=== PATIENT | male | born 1985 | race African-American/Black ===

== ENCOUNTER 2018-08-18 08:00 | Outpatient (RCR) | payer SELFPAY | END 2018-10-11 12:50 | disposition home or self-care (01) | LOC: MKS.ESL.PT 08:00 | DX: S72.301D Unspecified fracture of shaft of right femur, subsequent encounter for closed fracture with routine healing (principal); S52.611D Displaced fracture of right ulna styloid process, subsequent encounter for closed fracture with routine healing; S42.202D Unspecified fracture of upper end of left humerus, subsequent encounter for fracture with routine healing; S12.500D Unspecified displaced fracture of sixth cervical vertebra, subsequent encounter for fracture with routine healing; S12.600D Unspecified displaced fracture of seventh cervical vertebra, subsequent encounter for fracture with routine healing; V29.9XXD Motorcycle rider (driver) (passenger) injured in unspecified traffic accident, subsequent encounter ==

== ENCOUNTER 2019-04-15 11:15 | Outpatient (RCR) | payer MEDICAID ==
[2019-06-11] MEDS ORDERED: CEPHALEXIN500 M1 PO (07:44)
[2019-06-11] MEDS ORDERED: DOXYCYCLINE 10100 MG PO (07:44)
== END 2019-06-27 ==
LOC: MKS.ESL.PT
DX: S12.9XXS Fracture of neck, unspecified, sequela (principal)

== ENCOUNTER 2019-06-11 07:12 | Emergency (ER) | payer MEDICAID ==
[~2019-06-11] VITALS: Ht 175.3 cm; Wt 69.5 kg
[2019-06-11 07:19] VITALS: BP 124/69; PULSE 89
[2019-06-11] MEDS ORDERED: CEPHALEXIN500 M1 PO (07:44)
[2019-06-11] MEDS ORDERED: DOXYCYCLINE 10100 MG PO (07:44)
[2019-06-11 08:27] VITALS: TEMP 97.3
== END 2019-06-11 08:27 | disposition home or self-care (01) ==
LOC: COL.ER 07:12
DX: L02.412 Cutaneous abscess of left axilla (principal); F17.210 Nicotine dependence, cigarettes, uncomplicated

== ENCOUNTER → 2019-06-29 | Outpatient (CLI) | payer SELFPAY ==
[~2019-06-29] MED LIST: CEPHALEXIN500 M1 PO; DOXYCYCLINE 10100 MG PO
== END ==
LOC: DIA.ED
DX: E10.9 Type 1 diabetes mellitus without complications (principal); Z79.4 Long term (current) use of insulin
CPT/HCPCS: G0108

== ENCOUNTER 2019-07-17 21:52 | Emergency (ER) | payer SELFPAY ==
[~2019-07-17] VITALS: Ht 167.6 cm; Wt 70.0 kg
[2019-07-17 22:01] VITALS: BP 139/79; TEMP 98.3
[2019-07-17] MEDS ORDERED: NEURONTIN800 MG/TAB PO (22:12)
[2019-07-17] MEDS ORDERED: LIORESAL20 MG PO (22:12)
[2019-07-17 22:29] LABS: BASO % 0.4 % (0.0-2.0); EOS # 0.1 (0.0-0.7); EOS % 1.1 % (0-4.0); GRAN # 5.1 (1.4-6.5); GRAN % 64.6 % (42.2-75.2); HEMATOCRIT 44.9 % (42.0-52.0); LYMPH % 25.1 % (20.0-51.0); MEAN CELL VOLUME 87 fl (80.0-100.0); MEAN CORPUSCULAR HEMOGLOBIN 29 pg (27.0-31.0); MEAN CORPUSCULAR HGB CONC 33 g/dl (33.0-37.0); MEAN PLATELET VOLUME 10.4 fl (7.4-10.4); MONO # 0.7 (0.1-0.6); MONO % 8.4 % (1.7-9.3); PLATELET COUNT 172 K/mm3 (130-400); RED BLOOD COUNT 5.17 M/mm3 (4.20-5.60); REDCELL DISTRIBUTION WIDTH-CV 12.6 % (11.5-14.5)
[2019-07-17 22:40] LABS: ALANINE AMINOTRANSFERASE 11 U/L (21-72); ALBUMIN 4.1 gm/dL (3.5-5.0); ALKALINE PHOSPHATASE 165 U/L (50-136); ANION GAP 8 mmol/L (7-16); AST,SGOT 17 U/L (15-37); BILIRUBIN,TOTAL 0.3 mg/dL (0.0-1.0); BLOOD UREA NITROGEN 7 mg/dL (9-20); CALCIUM 9.2 mg/dL (8.4-10.2); CARBON DIOXIDE 26 mmol/L (22-30); CHLORIDE 102 mmol/L (98-107); CREATININE, serum 0.55 (0.66-1.25); LIPASE 114 U/L (23-300); SODIUM 136 mmol/L (137-145); TOTAL PROTEIN 6.8 gm/dL (6.4-8.2)
[2019-07-17 22:41] LABS: GLUCOSE 420 mg/dL (74-106)
[2019-07-17 22:43] LABS: ACETONE,SERUM NEGATIVE
[2019-07-17 23:04] LABS: COLLECTION METHOD CLEAN CATCH
[2019-07-17 23:09] LABS: PH 6 (5-8); SQUAMOUS EPITHELIAL None Seen /hpf; URINE APPEARANCE Clear; URINE BACTERIA None Seen /hpf; URINE BILIRUBIN Negative (NEGATIVE); URINE BLOOD Negative (NEGATIVE); URINE COLOR Straw; URINE GLUCOSE 3+ (NEGATIVE); URINE KETONE Negative (NEGATIVE); URINE LEUKOCYTE ESTERASE Negative (NEGATIVE); URINE NITRATE Negative (NEGATIVE); URINE PROTEIN(semi-quant) Negative (NEGATIVE); URINE RBC 0-2 /hpf; URINE UROBILINOGEN Negative (NEGATIVE)
[2019-07-17 23:54] VITALS: PULSE 69
== END 2019-07-17 23:56 | disposition home or self-care (01) ==
LOC: COL.ER 21:52
PROVIDERS: Emergency Medicine
DX: E10.65 Type 1 diabetes mellitus with hyperglycemia (principal); F17.210 Nicotine dependence, cigarettes, uncomplicated
CPT/HCPCS: J1815; J7030

== ENCOUNTER 2020-06-14 10:33 | Emergency (ER) | payer OTHER ==
[~2020-06-14] VITALS: Ht 175.3 cm; Wt 77.3 kg
[~2020-06-14 10:33] MED LIST changes: +LIORESAL20 MG PO; +NEURONTIN800 MG/TAB PO
[2020-06-14 10:42] VITALS: BP 146/88; TEMP 98.5
[2020-06-14] MEDS ORDERED: LIORESAL 1010 MG/TAB PO (11:09)
[2020-06-14 11:31] VITALS: PULSE 81
== END 2020-06-14 11:35 | disposition home or self-care (01) ==
LOC: COL.ER 10:33
DX: M62.838 Other muscle spasm (principal); G89.29 Other chronic pain; F17.210 Nicotine dependence, cigarettes, uncomplicated

== ENCOUNTER 2020-07-10 16:40 | Emergency (ER) | payer MEDICAID ==
[~2020-07-10] VITALS: Ht 175.3 cm; Wt 80.9 kg
[~2020-07-10 16:40] MED LIST changes: +LIORESAL 1010 MG/TAB PO
[2020-07-10 16:52] VITALS: BP 134/90; TEMP 98.4
[2020-07-10] MEDS ORDERED: DAZIDOX10 MG PO (17:59)
[2020-07-10] MEDS ORDERED: NEURONTIN800 MG/TAB PO (17:59)
[2020-07-10 18:21] VITALS: PULSE 83
== END 2020-07-10 18:00 | disposition home or self-care (01) ==
LOC: COL.ER 16:40
DX: M79.621 Pain in right upper arm (principal); M54.12 Radiculopathy, cervical region; G89.29 Other chronic pain; F17.210 Nicotine dependence, cigarettes, uncomplicated; Z23 Encounter for immunization
CPT/HCPCS: J1885

== ENCOUNTER → 2020-12-13 | Outpatient (CLI) | payer MEDICAID ==
[~2020-12-13] MED LIST changes: +AMOXICILLIN 8751 TAB PO; +CRUTCHES MC; +DAZIDOX10 MG PO; +FLEXERIL 1010 MG/TAB PO; +LYRICA200 MG PO; +PERCOCET 325 MG1 TA2 PO; +PERCOCET 325 MG1 TA3 PO; +ROBAXIN 50500 MG/TAB PO; +ROBAXIN 75750 MG/TAB PO
== END ==
LOC: COL.RAD 13:27
DX: G95.89 Other specified diseases of spinal cord (principal); S14.3XXD Injury of brachial plexus, subsequent encounter; S14.105S Unspecified injury at C5 level of cervical spinal cord, sequela
CPT/HCPCS: A9585

== ENCOUNTER 2021-05-02 01:43 | Emergency (ER) | payer MEDICAID ==
[~2021-05-02] VITALS: Ht 175.3 cm; Wt 79.5 kg
[~2021-05-02 01:43] MED LIST changes: -AMOXICILLIN 8751 TAB PO; -CRUTCHES MC; -FLEXERIL 1010 MG/TAB PO; -LYRICA200 MG PO; -PERCOCET 325 MG1 TA2 PO; -PERCOCET 325 MG1 TA3 PO; -ROBAXIN 50500 MG/TAB PO; -ROBAXIN 75750 MG/TAB PO
[2021-05-02 01:54] VITALS: TEMP 97.1
[2021-05-02] MEDS ORDERED: ROBAXIN 50500 MG/TAB PO (03:12)
[2021-05-02 03:23] VITALS: BP 124/70; PULSE 68
== END 2021-05-02 03:23 | disposition home or self-care (01) ==
LOC: COL.ER 01:43
DX: M62.838 Other muscle spasm (principal); K08.89 Other specified disorders of teeth and supporting structures; F17.210 Nicotine dependence, cigarettes, uncomplicated

== ENCOUNTER 2021-05-19 19:08 | Emergency (ER) | payer MEDICAID ==
[~2021-05-19] VITALS: Ht 175.3 cm; Wt 81.8 kg
[~2021-05-19 19:08] MED LIST changes: +ROBAXIN 50500 MG/TAB PO
[2021-05-19 19:38] LABS: BASO % 0.3 % (0.0-2.0); EOS % 0.7 % (0-4.0); GRAN # 4.1 (1.4-6.5); GRAN % 67.1 % (42.2-75.2); HEMOGLOBIN 15.9 g/dl (13.5-18.0); LYMPH # 1.4 (1.2-3.4); LYMPH % 22.3 % (20.0-51.0); MEAN CELL VOLUME 82 fl (80.0-100.0); MEAN CORPUSCULAR HEMOGLOBIN 28 pg (27.0-31.0); MEAN CORPUSCULAR HGB CONC 35 g/dl (33.0-37.0); MEAN PLATELET VOLUME 9.5 fl (7.4-10.4); MONO # 0.6 (0.1-0.6); MONO % 9.3 % (1.7-9.3); PLATELET COUNT 196 K/mm3 (130-400); RED BLOOD COUNT 5.59 M/mm3 (4.20-5.60); REDCELL DISTRIBUTION WIDTH-CV 13.3 % (11.5-14.5)
[2021-05-19 19:45] LABS: ALBUMIN 4.6 gm/dL (3.5-5.0); BILIRUBIN,TOTAL 0.8 mg/dL (0.0-1.0); CALCIUM 8.9 mg/dL (8.4-10.2); CREATININE, serum 0.8 (0.66-1.25); POTASSIUM 3.5 mmol/L (3.4-5.0); TOTAL PROTEIN 7.6 gm/dL (6.4-8.2)
[2021-05-19] MEDS ORDERED: PERCOCET 325 MG1 TA2 PO (21:39)
[2021-05-19] MEDS ORDERED: CRUTCHES MC (21:39)
[2021-05-19 22:40] VITALS: BP 144/97; PULSE 101; TEMP 98.7
== END 2021-05-19 22:40 | disposition home or self-care (01) ==
LOC: COL.ER 19:08
PROVIDERS: Personal Emergency Response Attendant
DX: S82.301A Unspecified fracture of lower end of right tibia, initial encounter for closed fracture (principal); S82.831A Other fracture of upper and lower end of right fibula, initial encounter for closed fracture; V23.4XXA Motorcycle driver injured in collision with car, pick-up truck or van in traffic accident, initial encounter
CPT/HCPCS: J2704

== ENCOUNTER 2021-05-30 07:35 | Day surgery (SDC) | payer MEDICAID ==
[~2021-05-30] VITALS: Ht 175.3 cm; Wt 77.2 kg
[~2021-05-30 07:35] MED LIST changes: +CRUTCHES MC; +PERCOCET 325 MG1 TA2 PO
[2021-05-30 08:21] VITALS: BP 129/71; PULSE 96; TEMP 99
[2021-05-30] MEDS ORDERED: LYRICA200 MG PO (08:23)
[2021-05-30] MEDS ORDERED: PERCOCET 325 MG1 TA3 PO (08:25)
[2021-05-30 11:30] VITALS: BP 131/78; PULSE 89; TEMP 97.6
--- NOTE | 2021-05-30 11:30 | NUR ---
Pt returns to [place] [facility] from PACU, drowsy but awakens easily. VSS. Denies pain, block working well, unable to move toes to right foot or feel touch, cap refill <3 sec. Right left elevated and ice in place. Call light in reach. Side rails up x2.
[2021-05-30 11:42] VITALS: TEMP 97.8
[2021-05-30 11:45] VITALS: BP 130/73; PULSE 92
--- NOTE | 2021-05-30 11:45 | NUR ---
Pt up to bathroom via wheelchair and knows not to be weight bearing to right foot.
[2021-05-30 12:00] VITALS: BP 138/78; PULSE 92
--- NOTE | 2021-05-30 12:00 | NUR ---
Pt tolerates a muffin and juice well, no pain or nausea. Discharge instructions provided and IV discontinued. Pt taken via wheelcharge and discharged to [facility] at 1215.
== END 2021-05-30 12:15 | disposition home or self-care (01) ==
LOC: SDCO 07:35
DX: S82.851A Displaced trimalleolar fracture of right lower leg, initial encounter for closed fracture (principal); Z83.3 Family history of diabetes mellitus; F17.210 Nicotine dependence, cigarettes, uncomplicated; Z79.82 Long term (current) use of aspirin; Z79.899 Other long term (current) drug therapy; Z99.89 Dependence on other enabling machines and devices
CPT/HCPCS: C1713; J0690; J1100; J2250; J2405; J2704; J2795; J3010; J7120

== ENCOUNTER 2021-06-11 20:56 | Emergency (ER) | payer MEDICAID ==
[~2021-06-11] VITALS: Ht 175.3 cm; Wt 77.3 kg
[~2021-06-11 20:56] MED LIST changes: +LYRICA200 MG PO; +PERCOCET 325 MG1 TA3 PO
[2021-06-11] MEDS ORDERED: FLEXERIL 1010 MG/TAB PO (23:02)
[2021-06-11] MEDS ORDERED: AMOXICILLIN 8751 TAB PO (23:02)
[2021-06-11 23:15] VITALS: BP 128/70; PULSE 81; TEMP 98.2
== END 2021-06-11 23:15 | disposition home or self-care (01) ==
LOC: COL.ER 20:56
DX: M25.571 Pain in right ankle and joints of right foot (principal); K05.20 Aggressive periodontitis, unspecified; F17.200 Nicotine dependence, unspecified, uncomplicated; Z98.818 Other dental procedure status

== ENCOUNTER 2021-07-29 02:17 | Emergency (ER) | payer MEDICAID ==
[~2021-07-29 02:17] MED LIST changes: +AMOXICILLIN 8751 TAB PO; +FLEXERIL 1010 MG/TAB PO
[2021-07-29 02:23] VITALS: TEMP 98.2
[2021-07-29] MEDS ORDERED: LYRICA200 MG PO (02:29)
[2021-07-29] MEDS ORDERED: ROBAXIN 75750 MG/TAB PO (02:29)
[2021-07-29 03:04] VITALS: BP 133/91; PULSE 88
== END 2021-07-29 03:04 | disposition home or self-care (01) ==
LOC: COL.ER 02:17
DX: M25.511 Pain in right shoulder (principal); Z79.891 Long term (current) use of opiate analgesic

== ENCOUNTER 2021-08-14 11:35 | Outpatient (RCR) | payer MEDICAID ==
[~2021-08-14 11:35] MED LIST changes: +ROBAXIN 75750 MG/TAB PO
== END 2021-09-13 | disposition still patient (30) ==
LOC: WSPT
DX: M79.601 Pain in right arm (principal); M25.571 Pain in right ankle and joints of right foot; G89.29 Other chronic pain

== ENCOUNTER → 2021-10-16 | Outpatient (CLI) | payer MEDICAID | LOC: MHCPAIN 12:32 | DX: S14.3XXD Injury of brachial plexus, subsequent encounter (principal); G89.29 Other chronic pain; M25.511 Pain in right shoulder; M54.12 Radiculopathy, cervical region | CPT/HCPCS: G0463 ==

== ENCOUNTER 2022-07-08 02:51 | Emergency (ER) | payer MEDICAID ==
[~2022-07-08] VITALS: Ht 175.3 cm; Wt 82.7 kg
[2022-07-08 02:55] VITALS: TEMP 98.5
[2022-07-08 03:35] LABS: BASO % 0.5 % (0.0-2.0); EOS # 0.1 K/mm3 (0.0-0.7); EOS % 1.9 % (0.0-4.0); GRAN # 3.5 K/mm3 (1.4-6.5); GRAN % 60.7 % (42.2-75.2); HEMATOCRIT 48.2 % (42.0-52.0); HEMOGLOBIN 16.5 g/dl (13.5-18.0); LYMPH # 1.4 K/mm3 (1.2-3.4); LYMPH % 23.6 % (20.0-51.0); MEAN CELL VOLUME 83 fl (80.0-100.0); MEAN CORPUSCULAR HEMOGLOBIN 28 pg (27-31); MEAN CORPUSCULAR HGB CONC 34 g/dl (33.0-37.0); MEAN PLATELET VOLUME 9.9 fl (7.4-10.4); MONO # 0.7 K/mm3 (0.1-0.6); MONO % 12.6 % (1.7-9.3); PLATELET COUNT 178 K/mm3 (130-400); RED BLOOD COUNT 5.82 M/mm3 (4.20-5.60); REDCELL DISTRIBUTION WIDTH-CV 12.7 % (11.5-14.5)
[2022-07-08 03:48] LABS: ALBUMIN 3.7 gm/dL (3.5-5.0); BILIRUBIN,TOTAL 0.6 mg/dL (0.2-1.2); CALCIUM 8.9 mg/dL (8.4-10.2); CREATININE, serum 0.97 mg/dL (0.72-1.25); POTASSIUM 3.5 mmol/L (3.5-4.5)
[2022-07-08] MEDS ORDERED: NORCO 325 MG-51 TAB PO (04:09)
[2022-07-08] MEDS ORDERED: AMOXICILLIN 50500 MG PO (04:09)
[2022-07-08 04:15] VITALS: BP 124/81; PULSE 75
== END 2022-07-08 04:20 | disposition home or self-care (01) ==
LOC: COL.ER 02:51
PROVIDERS: Personal Emergency Response Attendant
DX: T23.211A Burn of second degree of right thumb (nail), initial encounter (principal); E11.65 Type 2 diabetes mellitus with hyperglycemia; K02.9 Dental caries, unspecified; F17.210 Nicotine dependence, cigarettes, uncomplicated; Z28.310 Unvaccinated for COVID-19; X10.0XXA Contact with hot drinks, initial encounter
CPT/HCPCS: J2405; J7030